=== PATIENT | male | born 1975 | race Caucasian/White ===

== ENCOUNTER 2023-04-19 17:10 | Emergency (ER) | payer MEDICAID, SELFPAY ==
--- NOTE | 2023-04-19 17:25 | CRLHL7_ITS ---
For Patients: As a result of the Century Cures Act, medical imaging exams and procedure reports are released immediately into your electronic medical record. You may view this report before your referring provider. If you have questions, please contact your health care provider. INDICATION: Knee pain TECHNIQUE: Knee radiograph 3 views right COMPARISON: None FINDINGS: Bone: No acute fractures or aggressive bone lesions are identified. Small corticated ossicles are noted near the tibial tubercle. Joint: The medial, lateral, and patellofemoral compartments are unremarkable. No significant knee effusion is seen. Soft tissue: Unremarkable. No radiopaque foreign bodies are seen. IMPRESSION: 1. No acute osseous injuries or abnormalities are noted. Dictated by: Bradley Dewey MD @ 04/19/2023 18:31:06 (Electronically Signed)
[2023-04-19 17:27] VITALS: BP 128/73; PULSE 102; RESP 16; TEMP 36.4; O2SAT 94; BMI 31.6
--- NOTE | 2023-04-19 18:52 | ED.GENADULT ---
HPI - General Adult General Chief complaint: Extremity Pain/Injury, Lower Stated complaint: blew knee out, possible fracture Time Seen by Provider: 04/19/23 18:49 History of Present Illness HPI narrative: Patient was pushing a truck up a hill into a garage and injured his right knee. States he heard a pop. 48-year-old man presenting to the emergency department with concern of knee injury. I believe does have a history of meniscectomy in this right knee. While pushing a truck up hill into a garage heard a ?pop? and had sudden onset of pain in the area of this knee. Due to the degree of pain is not really able to bear weight on his right leg. No other injuries were noted. Indicates most pain seems to be behind the knee. Related Data Home Medications Medication Instructions Recorded Confirmed Unobtainable 04/19/23 04/19/23 Allergies Allergy/AdvReac Type Severity Reaction Status Date / Time metformin Allergy Unknown Verified 04/19/23 17:25 semaglutide [From [employer]bels[employer]] Allergy Unknown Verified 04/19/23 17:25 Review of Systems Status of ROS: Reports: 6 or more systems reviewed and unremarkable except as noted in History and below Exam Narrative: Exam Narrative: Pleasant. Seems quite uncomfortable. Due to busy emergency department is initially evaluated seated next to significant other in a bed in the gray. Dark complexion/flushed. Lying on his right side. Right leg is slightly flexed. Pain is exacerbated particular by flexion extension at the right ankle. I do not appreciate achilles defect. There is some tension and definitely fullness in the upper calf musculature. Exquisitely tender to palpation in this area. I do not appreciate defect of the semimembranous tendon. There is not a knee effusion. Does not appear to have laxity to varus or valgus stressing of the knee however exam really of the knee and leg is difficult due to degree of pain. Patella is midline. Const: Vital Signs, click to edit/add: Vital Signs - 24 hr 04/19/23 17:27 Temperature 97.6 F Pulse Rate [Pulse Oximeter] 102 H Respiratory Rate 16 Blood Pressure [Ri ght Upper Arm] 128/73 Pulse Oximetry 94 Oxygen Delivery Me thod Room Air Documenting provider has reviewed patient's vital signs: yes Course Vital Signs Vital signs: Initial Vital Signs Temperature 97.6 F 04/19/23 17:27 Temperature Source Temporal Artery Scan 04/19/23 17:27 Pulse Rate 102 H 04/19/23 17:27 Pulse Rhythm Regular 04/19/23 17:27 Respiratory Rate 16 04/19/23 17:27 Blood Pressure 128/73 04/19/23 17:27 Blood Pressure Mean 91 04/19/23 17:27 Blood Pressure Position Sitting 04/19/23 17:27 Pulse Oximetry 94 04/19/23 17:27 Oxygen Delivery Method Room Air 04/19/23 17:27 Vital Signs Temperature 97.6 F 04/19/23 17:27 Pulse Rate 102 H 04/19/23 17:27 Respiratory Rate 16 04/19/23 17:27 Blood Pressure 128/73 04/19/23 17:27 Pulse Oximetry 94 04/19/23 17:27 Oxygen Delivery Method Room Air 04/19/23 17:27 Temperature 97.6 F 04/19/23 17:27 Pulse Rate 102 H 04/19/23 17:27 Respiratory Rate 16 04/19/23 17:27 Blood Pressure 128/73 04/19/23 17:27 Pulse Oximetry 94 04/19/23 17:27 Oxygen Delivery Method Room Air 04/19/23 17:27 Medical Decision Making MDM Narrative Medical decision making narrative: Knee X-ray has been done by the time I am seeing him. I think this is more of a muscle/tendon disruption of the upper calf musculature. Due to degree of discomfort it is really difficult to do a thorough knee joint exam at this time. Reviewing the x-ray I see some accessory ossicles but I do not otherwise appreciate acute bony abnormality. Radiology over-read as below INDICATION: Knee pain TECHNIQUE: Knee radiograph 3 views right COMPARISON: None FINDINGS: Bone: No acute fractures or aggressive bone lesions are identified. Small corticated ossicles are noted near the tibial tubercle. Joint: The medial, lateral, and patellofemoral compartments are unremarkable. No significant knee effusion is seen. Soft tissue: Unremarkable. No radiopaque foreign bodies are seen. IMPRESSION: 1. No acute osseous injuries or abnormalities are noted. Did offer injection for more rapid pain effect. He would just as soon get the medications from [facility]; and take them at that time. Given knee immobilizer. Crutches See patient discharge plan Discharge Plan Discharge Clinical Impression: Pain of right calf Patient Disposition: Home w/ Parent or Adult Condition: Stable Instructions: Leg Pain (ED) Additional Instructions: I do have concerns that you ruptured your calf musculature. I would recommend calling on Saturday morning to follow up with Orthopedics phone number [phone]. Can wear this knee immobilizer for comfort over this next week. I doubt you will be able to bear weight on this leg over this week. Can take up to 800 mg of ibuprofen per dose or alternative might be up to 500 mg naproxen 2 times daily. Either can be combined acetaminophen or your [employer] prescribed from [facility]. Remember that each tablet of [employer] contains 3 and 25 mg of acetaminophen. You can take up to 1000 mg of acetaminophen per dose 4 times daily. Take 2 tabs of your [employer] right away I think and ibuprofen when you get home. Activity Level: No Restrictions Discharge Diet: Regular Prescriptions: No Action Unobtainable Stand Alone Forms: MyHealth Info Instructions
== END 2023-04-19 19:25 | disposition home or self-care (01) ==
LOC: ED 19:21
PROVIDERS: Emergency Provider Family Medicine
DX: M25.561 Pain in right knee (principal); X50.1XXA Overexertion from prolonged static or awkward postures, initial encounter
CPT/HCPCS: 73562; 99283; 99284